=== PATIENT | male | born 1960 | race Caucasian/White ===

== ENCOUNTER → 2016-10-10 | Outpatient (CLI) | payer OTHER ==
[2016-10-10 13:41] LABS: BASO % 0.4 % (0.0-1.0); EOS # 0.1 K/mm3 (0.0-0.50); EOS % 1.5 % (0.0-3.0); LARGE UNSTAINED CELL # 0.2 K/mm3 (0.0-0.4); LARGE UNSTAINED CELL % 2.8 % (0.0-4.0); LYMPH % 17.8 % (24.0-44.0); MEAN CORPUSCULAR HEMOGLOBIN 34.9 pg (27.0-33.0); MEAN CORPUSCULAR HGB CONC 32.4 g/dl (32.0-36.5); MEAN CORPUSCULAR VOLUME 107.6 fl (80.0-96.0); MONO # 0.4 K/mm3 (0.0-0.8); MONO % 8.1 % (0.0-5.0); NEUTROPHILS # 3.8 K/mm3 (1.8-7.7); NEUTROPHILS % 69.6 % (36.0-66.0); PLATELET COUNT, AUTOMATED 221 k/mm3 (150-450); RED CELL DISTRIBUTION WIDTH 12.8 % (11.5-14.5); WHITE BLOOD COUNT 5.4 K/mm3 (4.0-10.0)
[2016-10-10 13:55] LABS: ALBUMIN 3.9 GM/DL (3.2-5.2); ALBUMIN/GLOBULIN RATIO 1.11 (1.00-1.93); ALKALINE PHOSPHATASE 87 U/L (45-117); ALT/SGPT 50 U/L (12-78); ANION GAP 4 MEQ/L (8-16); AST/SGOT 46 U/L (15-37); BILIRUBIN,TOTAL 0.9 MG/DL (0.2-1.0); BLOOD UREA NITROGEN 8 MG/DL (7-18); CALCIUM LEVEL 8.7 MG/DL (8.5-10.1); CARBON DIOXIDE LEVEL 30 MEQ/L (21-32); CHLORIDE LEVEL 101 MEQ/L (98-107); CHOLESTEROL LEVEL 145 MG/DL (<200); CREATININE FOR GFR 0.86 MG/DL (0.70-1.30); FREE T4 1.06 NG/DL (0.76-1.46); GLOMERULAR FILTRATION RATE > 60.0 (>56); GLUCOSE, FASTING 102 MG/DL (70-105); POTASSIUM SERUM 4.8 MEQ/L (3.5-5.1); SODIUM LEVEL 135 MEQ/L (136-145); TOTAL PROTEIN 7.4 GM/DL (6.4-8.2); TRIGLYCERIDES LEVEL 47 MG/DL (<150)
[2016-10-10 14:18] LABS: HIV SCRN NEGATIVE (NEGATIVE); HIV SCRN1 NEGATIVE (NEGATIVE)
[2016-10-10 14:19] LABS: CONTROL LINE INT CTR LINE PRESENT
== END ==
LOC: M WUC 09:43
PROVIDERS: ATTEND Nurse Practitioner Family
DX: Z72.52 High risk homosexual behavior (principal); I10 Essential (primary) hypertension
CPT/HCPCS: 36415; 80053; 80061; 84439; 84443; 85025; 86803; 87491; 87591; 87806; G0103

== ENCOUNTER → 2017-03-27 | Outpatient (REF) | payer OTHER | LOC: M SFHCPLAZ 16:21 | PROVIDERS: ATTEND Family Medicine | DX: Z20.2 Contact with and (suspected) exposure to infections with a predominantly sexual mode of transmission (principal) ==

== ENCOUNTER 2017-06-27 08:34 | Day surgery (SDC) | payer OTHER ==
[~2017-06-27] VITALS: Ht 188 cm; Wt 78.8 kg
[~2017-06-27 08:34] MED LIST: ACETAMINOPHEN 325 MG TAB PO PRN; BSS with VANC/TOB/EPI for EYE CASES IR ONE; CLON0.5T PO; CYCLOPENTOLATE 2% OPHTH SOLN 2ML BTL OS ONE; LIDOCAINE 3.5 % 1ML OPHTH TOPICAL GEL OU ONE; MULT1TAB10 PO; OFLOXACIN 0.3 % (OCUFLOX) OPTH SOL 5ML OS ONE; OMEP40CA2; PHENYLEPHRINE 2.5% OPHTH SOL 2ML OS ONE; PROP60TA14; PROPARACAINE 0.5% OPHTH SOL 15ML OS PRN; TROPICAMIDE 1% OPHTH SOLN 2ML OS ONE; TRUVTAB
[2017-06-27] MEDS ORDERED: TRIMETHOBENZAMIDE 300 MG CAP PO PRN (09:00)
[2017-06-27] MEDS ORDERED: AcetaZOLAMIDE 500 MG ER CAP PO ONE (09:00)
[2017-06-27] MEDS ORDERED: MOXIFLOXACIN IN BSS 0.25MG/0.25ML INTRACAMERAL INJ (OR EYE ONLY)(J2280) As Ordered ONE (10:04)
[2017-06-27] MEDS ORDERED: HEALON DUET (HEALON 10MG/ML 0.55ML & HEALON ENDOCOAT 30MG/ML 0.85ML) As Ordered ONE (10:04)
[2017-06-27] MEDS ORDERED: LIDOCAINE 1% SDV 5 ML VIAL As Ordered ONE (10:04)
[2017-06-27] MEDS ORDERED: POVIDONE-IODINE 5% OPHTH PREP SOL 30ML As Ordered ONE (10:04)
[2017-06-27] MEDS ORDERED: TRIAMCINOLONE PRES FR 40 MG/ML 1ML(TRIESENCE)(OR EYE ONLY)(J3300 PER 1MG) As Ordered ONE (10:04)
[2017-06-27] MEDS ORDERED: fentaNYL 100 MCG/2 ML INJECTION (J3010) As Ordered ONE (10:23)
[2017-06-27] MEDS ORDERED: MIDAZOLAM INJ 2 MG/2 ML VIAL (J2250) As Ordered ONE (10:23)
--- NOTE | 2017-06-27 10:56 | RO ---
DATE OF PROCEDURE: 06/27/2017 PREPROCEDURE DIAGNOSIS: Cataract of left eye. POSTPROCEDURE DIAGNOSIS: Cataract of left eye. PROCEDURE: Femtosecond laser and phacoemulsification of the intraocular lens with lens implantation Hoya left eye. Intraocular lens power used was 20.5 diopter. SURGEON: Zay Valenzuela MD STRIKER OUT: None. ANESTHESIA: Local IV standby. FINDINGS: Cataract of left eye. COMPLICATIONS: None. DESCRIPTION OF PROCEDURE: The patient was brought to the operating room and laid in supine position. A lid speculum was placed, and patient was brought under the femtosecond laser. After the satisfactory placement of the patient interface, primary incision, secondary incision, and arcuate incisions with lens fragmentation was done without any complication per plan. The patients interface was then removed and lid speculum removed. Patient was placed under the microscope. The eye was prepped and draped in a sterile fashion for ophthalmic surgery. Lid speculum was placed. The secondary incision was opened, and EndoCoat was injected into the anterior chamber. The temporal clear corneal incision was then opened and capsulorrhexis removed, followed by hydrodissection. This was followed by phacoemulsification of the lens within the capsular bag. Cortical material was then aspirated, and Healon was injected into the capsular bag. Intraocular lens was then placed. Excess Healon was aspirated. Wound was hydrated. The lid speculum was removed, and patient was returned to the recovery room in stable condition.
[2017-06-27 11:50] VITALS: BP 128/75
== END 2017-06-27 11:55 | disposition home or self-care (01) ==
LOC: M SDC 08:34
PROVIDERS: ATTEND Ophthalmology
DX: H26.9 Unspecified cataract (principal); I10 Essential (primary) hypertension; K21.9 Gastro-esophageal reflux disease without esophagitis; F41.9 Anxiety disorder, unspecified; Z79.899 Other long term (current) drug therapy; Z86.11 Personal history of tuberculosis; Z72.0 Tobacco use

== ENCOUNTER 2021-12-08 18:51 | Inpatient (IN) | payer OTHER ==
[~2021-12-08] VITALS: Ht 182.9 cm; Wt 80.1 kg
[~2021-12-08 18:51] MED LIST changes: -ACETAMINOPHEN 325 MG TAB PO PRN; -BSS with VANC/TOB/EPI for EYE CASES IR ONE; -CLON0.5T PO; +CLON0.5T2 PO; -CYCLOPENTOLATE 2% OPHTH SOLN 2ML BTL OS ONE; +EMTR1TAB16; -LIDOCAINE 3.5 % 1ML OPHTH TOPICAL GEL OU ONE; -OFLOXACIN 0.3 % (OCUFLOX) OPTH SOL 5ML OS ONE; -OMEP40CA2; +OMEP40CA4; -PHENYLEPHRINE 2.5% OPHTH SOL 2ML OS ONE; -PROPARACAINE 0.5% OPHTH SOL 15ML OS PRN; -TROPICAMIDE 1% OPHTH SOLN 2ML OS ONE; -TRUVTAB
[2021-12-08] MEDS ORDERED: PROPRANOLOL 60 MG LA CAP PO SCH (21:00)
[2021-12-08] MEDS ORDERED: ALBUTEROL SULFATE 2.5 MG/0.5 ML INH NEB SOLN NEB ONE (22:30)
[2021-12-08] MEDS ORDERED: ALBUTEROL SULFATE 2.5 MG/0.5 ML INH NEB SOLN NEB PRN (22:35)
[2021-12-08] MEDS ORDERED: THIAMINE 200MG 2ML VIAL IM ONE (23:15)
[2021-12-08 23:22] LABS: HEMATOCRIT 32.8 % (42.0-52.0); HEMOGLOBIN 10.6 g/dl (13.5-17.5); LYMPH # 0.5 10^3/uL (1.5-5.0); LYMPH % 7.1 % (24.0-44.0); MEAN CORPUSCULAR HEMOGLOBIN 41.6 pg (27.0-33.0); MEAN CORPUSCULAR HGB CONC 32.3 g/dl (32.0-36.5); MONO # 0.6 10^3/uL (0.0-0.8); MONO % 7.9 % (2.0-8.0); NEUTROPHILS # 6.2 10^3/uL (1.5-8.5); NEUTROPHILS % 84.3 % (36.0-66.0); PLATELET COUNT, AUTOMATED 148 10^3/uL (150-450); RED BLOOD COUNT 2.55 10^6/uL (4.30-6.10); WHITE BLOOD COUNT 7.3 10^3/uL (4.0-10.0)
[2021-12-08 23:48] LABS: ALBUMIN 1.8 GM/DL (3.2-5.2); ALT/SGPT 83 U/L (12-78); BILIRUBIN,TOTAL 4.6 MG/DL (0.2-1.0); BLOOD UREA NITROGEN 7 MG/DL (7-18); CALCIUM LEVEL 6.7 MG/DL (8.8-10.2); CARBON DIOXIDE LEVEL 21 MEQ/L (21-32); CHLORIDE LEVEL 110 MEQ/L (98-107); GLOMERULAR FILTRATION RATE > 60.0 (>49); GLUCOSE, FASTING 122 MG/DL (70-100); MAGNESIUM LEVEL 1.9 MG/DL (1.8-2.4); NT-PRO BNP 8706 PG/ML (<125); PHOSPHORUS LEVEL 2.8 MG/DL (2.5-4.9); POTASSIUM SERUM 4.1 MEQ/L (3.5-5.1); SODIUM LEVEL 139 MEQ/L (136-145); TOTAL PROTEIN 5.5 GM/DL (6.4-8.2)
[2021-12-08 23:54] LABS: MEAN CORPUSCULAR VOLUME 128.6 fl (80.0-96.0)
[2021-12-08 23:55] LABS: ANISOCYTOSIS 1+
[2021-12-08 23:56] LABS: PLATELET CLUMPS SMALL AMT; PLATELET ESTIMATE DECREASED (NORMAL)
[2021-12-08 23:57] LABS: POLYCHROMASIA 2+
[2021-12-08 23:58] LABS: STOMATOCYTES 1+
[2021-12-09] VITALS (13 sets, daily range): BP systolic 92–135; BP diastolic 50–87
[2021-12-09] MEDS ORDERED: FOLI1TAB11 PO (01:27)
[2021-12-09] MEDS ORDERED: TRAZ-186 PO (01:27)
[2021-12-09] MEDS ORDERED: ALBU8.5H INH (01:27)
[2021-12-09] MEDS ORDERED: SYMB80INH INH (01:27)
[2021-12-09] MEDS ORDERED: MAGN400T2 PO (01:27)
[2021-12-09] MEDS ORDERED: ELIQ5TAB PO (01:27)
[2021-12-09] MEDS ORDERED: CALC600T60 PO (01:27)
[2021-12-09] MEDS ORDERED: THIA100T7 PO (01:27)
[2021-12-09] MEDS ORDERED: OMEP40CA5 PO (01:27)
[2021-12-09] MEDS ORDERED: MIRT1TAB PO (01:27)
[2021-12-09] MEDS ORDERED: SPIR-10 PO (01:27)
[2021-12-09] MEDS ORDERED: QUET1TAB17 PO (01:27)
[2021-12-09] MEDS ORDERED: DILT12SRCA PO (01:27)
[2021-12-09] MEDS ORDERED: VITMTA PO (01:27)
[2021-12-09] MEDS ORDERED: PROP60TA18 PO (01:27)
[2021-12-09] MEDS ORDERED: POTA1TAB14 PO (01:27)
[2021-12-09] MEDS ORDERED: MELA1TAB9 PO (01:27)
[2021-12-09] MEDS ORDERED: HOME MED LIST COMPLETE! XX SCH (01:30)
[2021-12-09] MEDS ORDERED: DIGOXIN INJ 0.5 MG/2 ML AMP (J1160) IV STA ×3 (01:32→11:45)
[2021-12-09 01:37] LABS: ABG BASE EXCESS -7.1 (-2.0-2.0); ABG FIO2 21; ABG HCO3 17.9 MEQ/L (22.0-26.0); ABG O2 SATURATION 85.8 % (95.0-99.0); ABG PARTIAL PRESSURE CO2 34.3 mmHg (35.0-45.0); ABG PARTIAL PRESSURE O2 56.4 mmHg (75.0-100.0); ABG STANDARD HCO3 18.5 MEQ/L (22.0-26.0); ABG TOTAL CO2 18.9 MEQ/L (23.0-31.0); ABG pH (ARTERIAL) 7.335 UNITS (7.350-7.450)
[2021-12-09] MEDS ORDERED: PROPRANOLOL 20 MG TAB PO SCH (02:00)
[2021-12-09] MEDS ORDERED: FUROSEMIDE 100MG/10ML VIAL (J1940) IV ONE (02:15)
[2021-12-09] MEDS: LevoFLOXacin IV 750 MG in IV 1 EA IV SCH (04:56)
[2021-12-09] MEDS ORDERED: METOPROLOL TART 25 MG TABLET PO ONE (05:45)
[2021-12-09] MEDS: SYMBICORT 80/4.5MCG INHALER 6GM INH SCH ×2 (07:25→20:10)
[2021-12-09] MEDS: ALBUTEROL SULFATE 2.5 MG/0.5 ML INH NEB SOLN NEB SCH ×3 (07:25→11:52)
[2021-12-09] MEDS: diltiaZEM 125 MG in NS 100 ML IV SCH ×2 (08:01→21:00)
[2021-12-09] MEDS ORDERED: ADVAIR HFA 230/21MCG INHALER INH SCH (09:00)
[2021-12-09] MEDS ORDERED: ENOXAPARIN 40MG/0.4ML SYRINGE (J1650 PER 10MG) SC SCH (09:00)
[2021-12-09] MEDS ORDERED: SPIRONOLACTONE 12.5MG PER 1/2 TABLET PO SCH (09:00)
[2021-12-09] MEDS ORDERED: THIAMINE 100 MG TAB PO SCH (09:00)
[2021-12-09] MEDS: APIXABAN 5 MG TAB (ELIQUIS) PO SCH ×2 (09:07→21:00)
[2021-12-09] MEDS: FOLIC ACID 1 MG TAB PO SCH (09:07)
[2021-12-09] MEDS: METOPROLOL TART 25 MG TABLET PO SCH ×2 (09:07→21:01)
[2021-12-09] MEDS: MULTIVITAMINS/MINERALS THERAP 1 TAB PO SCH (09:07)
[2021-12-09] MEDS: PANTOPRAZOLE 40MG TAB (PROTONIX) PO SCH (09:07)
[2021-12-09 12:16] LABS: BLOOD UREA NITROGEN 8 MG/DL (7-18); CALCIUM LEVEL 7.3 MG/DL (8.8-10.2); CARBON DIOXIDE LEVEL 24 MEQ/L (21-32); CHLORIDE LEVEL 109 MEQ/L (98-107); CREATININE FOR GFR 0.87 MG/DL (0.70-1.30); FREE T3 1.6 PG/ML (2.2-4.0); FREE T4 1.17 NG/DL (0.76-1.46); GLOMERULAR FILTRATION RATE > 60.0 (>49); GLUCOSE, FASTING 84 MG/DL (70-100); MAGNESIUM LEVEL 1.6 MG/DL (1.8-2.4); SODIUM LEVEL 142 MEQ/L (136-145)
[2021-12-09] MEDS: MAG SULF 1GM/100ML (MAG RUN) 1 GM in IV 1 EA IV SCH ×2 (12:50→14:15)
[2021-12-09] MEDS ORDERED: LIDOCAINE 1% MDV 20ML VIAL As Ordered ONE (15:12)
[2021-12-09] MEDS ORDERED: LEVALBUTEROL 1.25 MG/0.5 ML CONCENTRATE NEB INH PRN (15:20)
[2021-12-09] MEDS ORDERED: FUROSEMIDE injection 250 MG in D5W 225 ML IV SCH (16:00)
[2021-12-09] MEDS ORDERED: SODIUM CHLORIDE 0.9% INJ 10 ML SYR IV PRN (17:45)
[2021-12-09] MEDS: SODIUM CHLORIDE 0.9% INJ 10 ML SYR IV SCH (17:47)
[2021-12-09] MEDS ORDERED: DIGOXIN INJ 0.5 MG/2 ML AMP (J1160) IV ONE (18:00)
[2021-12-09 18:31] LABS: INR 1.79; PROTHROMBIN TIME 21.2 SECONDS (12.7-14.5)
[2021-12-09] MEDS ORDERED: prednisoLONE (PRELONE) 15MG/5ML SYRUP UDC PO SCH (19:05)
[2021-12-09] MEDS ORDERED: MIRTAZAPINE 7.5MG PER 1/2 TABLET PO SCH (21:00)
[2021-12-09] MEDS: QUEtiapine FUMARATE 12.5 MG HALF-TAB PO SCH (21:00)
[2021-12-10] VITALS (49 sets, daily range): BP systolic 78–148; BP diastolic 50–96
[2021-12-10] MEDS ORDERED: LEVALBUTEROL 1.25 MG/0.5 ML CONCENTRATE NEB INH PRN (04:30)
[2021-12-10] MEDS: LevoFLOXacin IV 750 MG in IV 1 EA IV SCH (04:35)
[2021-12-10] MEDS ORDERED: ISOVUE-370 76% 100ML VIAL As Ordered ONE (04:35)
[2021-12-10 04:37] LABS: ABG BASE EXCESS -3.4 (-2.0-2.0); ABG HCO3 23.5 MEQ/L (22.0-26.0); ABG O2 SATURATION 94.7 % (95.0-99.0); ABG PARTIAL PRESSURE CO2 50.6 mmHg (35.0-45.0); ABG PARTIAL PRESSURE O2 84.9 mmHg (75.0-100.0); ABG STANDARD HCO3 21.6 MEQ/L (22.0-26.0); ABG TOTAL CO2 25.1 MEQ/L (23.0-31.0); ABG pH (ARTERIAL) 7.285 UNITS (7.350-7.450)
[2021-12-10 05:18] LABS: HEMATOCRIT 33.5 % (42.0-52.0); HEMOGLOBIN 10.8 g/dl (13.5-17.5); MEAN CORPUSCULAR HEMOGLOBIN 41.7 pg (27.0-33.0); MEAN CORPUSCULAR HGB CONC 32.2 g/dl (32.0-36.5); PLATELET COUNT, AUTOMATED 129 10^3/uL (150-450); RED BLOOD COUNT 2.59 10^6/uL (4.30-6.10); WHITE BLOOD COUNT 7.4 10^3/uL (4.0-10.0)
[2021-12-10 05:21] LABS: MEAN CORPUSCULAR VOLUME 129.3 fl (80.0-96.0)
[2021-12-10 05:42] LABS: ALBUMIN 1.7 GM/DL (3.2-5.2); ALT/SGPT 78 U/L (12-78); BLOOD UREA NITROGEN 8 MG/DL (7-18); CALCIUM LEVEL 7.2 MG/DL (8.8-10.2); CARBON DIOXIDE LEVEL 20 MEQ/L (21-32); CHLORIDE LEVEL 107 MEQ/L (98-107); GLOMERULAR FILTRATION RATE > 60.0 (>49); GLUCOSE, FASTING 132 MG/DL (70-100); MAGNESIUM LEVEL 1.7 MG/DL (1.8-2.4); POTASSIUM SERUM 3.5 MEQ/L (3.5-5.1); SODIUM LEVEL 137 MEQ/L (136-145); TOTAL PROTEIN 5.8 GM/DL (6.4-8.2)
[2021-12-10] MEDS: SODIUM CHLORIDE 0.9% INJ 10 ML SYR IV SCH ×2 (06:00→17:32)
[2021-12-10] MEDS ORDERED: NS 500 ML IV ONE (06:10)
[2021-12-10] MEDS ORDERED: AMIODARONE HCL 150 MG in IV 1 EA IV SCH (07:55)
[2021-12-10] MEDS ORDERED: AMIODARONE HCL 360 MG in IV 1 EA IV SCH ×2 (08:05→14:00)
[2021-12-10] MEDS: SYMBICORT 80/4.5MCG INHALER 6GM INH SCH ×2 (08:05→19:27)
[2021-12-10] MEDS ORDERED: AMIODARONE HCL 150 MG/100 ML PREMIXED BAG (NEXTERONE) (J0282 PER 30MG) As Ordered ONE (08:10)
[2021-12-10] MEDS: APIXABAN 5 MG TAB (ELIQUIS) PO SCH ×2 (08:13→20:46)
[2021-12-10] MEDS: MAG SULF 1GM/100ML (MAG RUN) 1 GM in IV 1 EA IV SCH ×3 (08:21→10:49)
[2021-12-10] MEDS ORDERED: methylPREDNISolone 40MG 1ML VIAL IV SCH (09:00)
[2021-12-10] MEDS ORDERED: THIAMINE 200MG 2ML VIAL IM SCH (09:00)
[2021-12-10] MEDS ORDERED: KCL 20MEQ IN 100ML SWI (KRUN) 20 MEQ in IV 1 EA IV ONE ×2 (09:00)
[2021-12-10] MEDS ORDERED: bisoproloL fumarate 10 MG TAB PO SCH (09:00)
[2021-12-10] MEDS: PANTOPRAZOLE 40MG TAB (PROTONIX) PO SCH (09:44)
[2021-12-10] MEDS: MULTIVITAMINS/MINERALS THERAP 1 TAB PO SCH (09:44)
[2021-12-10] MEDS: FOLIC ACID 1 MG TAB PO SCH (09:44)
[2021-12-10] MEDS: METOPROLOL TART 25 MG TABLET PO SCH (09:45)
[2021-12-10] MEDS ORDERED: propofoL 1,000 MG in IV 1 EA IV SCH (11:40)
[2021-12-10] MEDS ORDERED: KCL 10MEQ/100ML SWI (KRUN) 10 MEQ in IV 1 EA IV SCH (12:00)
[2021-12-10] MEDS ORDERED: FUROSEMIDE 40MG/4ML VIAL (J1940) IV ONE (14:00)
[2021-12-10] MEDS ORDERED: KETOROLAC 30 MG/ML 1ML VIAL IV ONE (20:35)
[2021-12-10] MEDS: QUEtiapine FUMARATE 12.5 MG HALF-TAB PO SCH (20:58)
[2021-12-10] MEDS ORDERED: bisoproloL fumarate 5 MG TAB PO ONE (21:15)
[2021-12-10] MEDS ORDERED: LORazepam 2 MG TAB PO PRN (21:50)
[2021-12-11] VITALS: BP 86/54
[2021-12-11 01:00] VITALS: BP 98/72
[2021-12-11 02:00] VITALS: BP 97/63
[2021-12-11 03:00] VITALS: BP 96/63
[2021-12-11 04:00] VITALS: BP 92/67
[2021-12-11] MEDS ORDERED: bisoproloL fumarate 5 MG TAB PO SCH (09:00)
[2021-12-12 11:01] LABS: HEPATITIS B CORE ANTIBODY IGM NEGATIVE (NEGATIVE); HEPATITIS B SURFACE ANTIGEN NEGATIVE (NEGATIVE); HEPATITIS C VIRUS ABY INDEX 0.1 INDEX (<0.8)
== END 2021-12-11 04:42 | disposition expired | DRG 201 ==
LOC: M PCU 22:00 → M ICU 12-10 05:44
PROVIDERS: ADMIT Internal Medicine; ATTEND Internal Medicine
PROC: B246ZZZ Ultrasonography of Right and Left Heart (ICD-10-PCS; 2021-12-08)
PROC: 02HV33Z Insertion of Infusion Device into Superior Vena Cava, Percutaneous Approach (ICD-10-PCS; principal; 2021-12-09 15:30)
DX: I48.19 Other persistent atrial fibrillation (principal); J96.01 Acute respiratory failure with hypoxia; I50.33 Acute on chronic diastolic (congestive) heart failure; J18.9 Pneumonia, unspecified organism; J81.1 Chronic pulmonary edema; F10.231 Alcohol dependence with withdrawal delirium; J96.02 Acute respiratory failure with hypercapnia; I27.29 Other secondary pulmonary hypertension; I50.810 Right heart failure, unspecified; J44.0 Chronic obstructive pulmonary disease with (acute) lower respiratory infection; F10.26 Alcohol dependence with alcohol-induced persisting amnestic disorder; K70.10 Alcoholic hepatitis without ascites; I95.9 Hypotension, unspecified; K74.60 Unspecified cirrhosis of liver; Z66 Do not resuscitate; K59.09 Other constipation; K21.9 Gastro-esophageal reflux disease without esophagitis; Z20.822 Contact with and (suspected) exposure to COVID-19; Z79.01 Long term (current) use of anticoagulants; Z79.899 Other long term (current) drug therapy; F17.210 Nicotine dependence, cigarettes, uncomplicated; E80.6 Other disorders of bilirubin metabolism; I34.0 Nonrheumatic mitral (valve) insufficiency; K82.8 Other specified diseases of gallbladder; I46.9 Cardiac arrest, cause unspecified